=== PATIENT | female | born 1995 | race Asian ===

== ENCOUNTER 2018-03-17 20:12 | Emergency (ER) | payer BC ==
[~2018-03-17] VITALS: Ht 154.9 cm; Wt 50.3 kg
[2018-03-17 20:28] VITALS: Ht 154.9 cm; Wt 50.3 kg
[2018-03-17 22:20] LABS: BASOPHIL % 0.2 % (0-2); PLATELET COUNT 277 x10^3mcL (130-400); RED CELL DISTRIBUTION WIDTH 12.8 % (11.5-14.5)
[2018-03-17 22:44] LABS: CALCIUM 9.2 mg/dL (8.5-10.1); CARBON DIOXIDE 28.2 mmol/L (21-32); CHLORIDE SERUM 102 mmol/L (98-107); CREATININE SERUM 0.6 mg/dL (0.6-1.0); GFR1 > 60 mL/min; GLUCOSE SERUM 97 mg/dL (74-106); POTASSIUM SERUM 3.3 mmol/L (3.5-5.1); SODIUM SERUM 140 mmol/L (136-145)
[2018-03-17 22:49] LABS: ALBUMIN 4.4 g/dL (3.4-5.0); ALKALINE PHOSPHATASE 67 U/L (46-116); ALT/SGPT 31 U/L (14-59); AST/SGOT 21 U/L (15-37); BILIRUBIN TOTAL 0.72 mg/dL (0.20-1.00)
[2018-03-17 22:52] LABS: TOTAL PROTEIN, SERUM 8.3 g/dL (6.4-8.2)
[2018-03-17 23:34] VITALS: BP 107/66
== END 2018-03-17 23:35 | disposition home or self-care (01) ==
LOC: ED 20:12
PROVIDERS: Emergency Medicine
DX: K21.9 Gastro-esophageal reflux disease without esophagitis (principal); Z88.6 Allergy status to analgesic agent
CPT/HCPCS: 36415

== ENCOUNTER 2018-08-16 00:22 | Emergency (ER) | payer BC ==
[~2018-08-16] VITALS: Ht 154.9 cm; Wt 47.6 kg
[2018-08-16 00:25] VITALS: Ht 154.9 cm; Wt 47.6 kg
[2018-08-16 02:31] VITALS: BP 107/71
== END 2018-08-16 02:31 | disposition home or self-care (01) ==
LOC: ED 00:22
DX: T78.40XA Allergy, unspecified, initial encounter (principal); Z88.6 Allergy status to analgesic agent; X58.XXXA Exposure to other specified factors, initial encounter
CPT/HCPCS: J0171; J1200; J2930; J3490